=== PATIENT | male | born 1950 | race African-American/Black ===

== ENCOUNTER 2020-07-25 18:45 | Inpatient (IN) | payer MEDICARE, MEDICAID ==
[~2020-07-25] VITALS: Ht 188 cm; Wt 79.8 kg
[2020-07-25 19:57] LABS: HEMATOCRIT. 42.4 % (42.0-52.0); HEMOGLOBIN. 14.5 g/dL (14.0-18.0); MEAN CORPUSCULAR HEMOGLOBIN 30.1 pg (28.0-32.0); MEAN CORPUSCULAR VOLUME 88.1 fL (80.0-94.0); MEAN PLATELET VOLUME 9.3 fl (7.4-10.4); PLATELET 355 x1000/uL (130-400); RED BLOOD CELL COUNT 4.82 mill/uL (4.7-6.1); RED CELL DISTRIBUTION WIDTH 12.2 % (11.6-14.6)
[2020-07-25 20:04] LABS: CHLORIDE 101 mEq/L (98-107)
[2020-07-25] MEDS ORDERED: AZITHROMYCIN 500 MG in DEXT 5% WATER 250 ML IV SCH (20:30)
[2020-07-25] MEDS ORDERED: CEFTRIAXONE 1 G PREMIX 50 ML IV ONE (20:30)
[2020-07-25 20:56] LABS: PLATELET ESTIMATE NORMAL
[2020-07-25] MEDS ORDERED: SODIUM CHLORIDE 0.9% 1,000 ML IV ONE ×2 (21:45→23:15)
[2020-07-25] MEDS ORDERED: ONDANSETRON HCL 4MG/2ML INJ IV PRN (22:30)
[2020-07-25] MEDS ORDERED: DIPHENHYDRAMINE 50MG/ML VIAL IV PRN (22:30)
[2020-07-25] MEDS ORDERED: DOCUSATE SODIUM 100MG CAPSULE PO PRN (22:30)
[2020-07-25] MEDS ORDERED: GUAIFENESIN 200MG/10ML SUGAR FREE UDC PO PRN (22:30)
[2020-07-25] MEDS ORDERED: MORPHINE SULFATE 2 MG/ML CPJ (NOT FOR IM USE) IV PRN (22:30)
[2020-07-25] MEDS ORDERED: HYDROCODONE/ACETAMINOPHEN 5/325MG TABLET PO PRN (22:30)
[2020-07-25] MEDS ORDERED: MAGNESIUM/ALUMINUM HYDROXIDE/SIMETHICONE 30ML UDC PO PRN (22:30)
[2020-07-25] MEDS ORDERED: CLONIDINE 0.1MG TABLET PO PRN (22:30)
[2020-07-25] MEDS ORDERED: ALBUTEROL 6.7GM HFA INHALER ORI PRN (22:30)
[2020-07-25] MEDS ORDERED: ACETAMINOPHEN 325MG TABLET PO PRN (22:30)
[2020-07-25] MEDS ORDERED: LORAZEPAM 2MG/ML CPJ IV PRN (22:30)
[2020-07-26] VITALS (7 sets, daily range): BP systolic 92–121; BP diastolic 53–72
[2020-07-26] MEDS: SODIUM CHLORIDE 0.9% INJ 3ML FLUSH IVF SCH ×3 (05:17→20:45)
[2020-07-26 06:43] LABS: HEMATOCRIT. 39.5 % (42.0-52.0); HEMOGLOBIN. 13.4 g/dL (14.0-18.0); MEAN CORPUSCULAR HEMOGLOBIN 30.2 pg (28.0-32.0); MEAN CORPUSCULAR VOLUME 88.8 fL (80.0-94.0); MEAN PLATELET VOLUME 9.2 fl (7.4-10.4); PLATELET 326 x1000/uL (130-400); RED BLOOD CELL COUNT 4.45 mill/uL (4.7-6.1); RED CELL DISTRIBUTION WIDTH 12.3 % (11.6-14.6)
[2020-07-26] MEDS ORDERED: AZITHROMYCIN 500 MG in DEXT 5% WATER 250 ML IV SCH (08:00)
[2020-07-26 08:14] LABS: CHLORIDE 104 mEq/L (98-107)
[2020-07-26] MEDS ORDERED: ENOXAPARIN 40MG/0.4ML SYR SUBCUT SCH (09:00)
[2020-07-26] MEDS ORDERED: MAGNESIUM HYDROXIDE 400MG/5ML 30ML UDC PO PRN (12:00)
[2020-07-26] MEDS: DEXAMETHASONE 10 MG/ML VIAL IV SCH (13:07)
[2020-07-26] MEDS: ASPIRIN 81MG EC TABLET PO SCH (13:07)
[2020-07-26 13:48] LABS: PLATELET ESTIMATE NORMAL
[2020-07-26] MEDS ORDERED: CEFTRIAXONE 1 G PREMIX 50 ML IV SCH (20:00)
[2020-07-26] MEDS: CEFTRIAXONE 1,000 MG in DEXTROSE 5% WATER 50 ML IV SCH (20:44)
[2020-07-27] VITALS: BP 95/62
[2020-07-27 04:00] VITALS: BP 105/67
[2020-07-27] MEDS: SODIUM CHLORIDE 0.9% INJ 3ML FLUSH IVF SCH ×3 (05:12→22:57)
[2020-07-27 08:00] VITALS: BP 111/69
[2020-07-27] MEDS: DEXAMETHASONE 10 MG/ML VIAL IV SCH (08:08)
[2020-07-27] MEDS: ASPIRIN 81MG EC TABLET PO SCH (08:08)
[2020-07-27] MEDS: AZITHROMYCIN 500 MG in DEXT 5% WATER 250 ML IV SCH (08:12)
[2020-07-27 12:00] VITALS: BP 110/68
[2020-07-27] MEDS: ASCORBIC ACID 500 MG TABLET PO SCH ×2 (12:45→16:29)
[2020-07-27] MEDS: ZINC SULFATE 220 MG ( 50 ) CAPSULE PO SCH (12:45)
[2020-07-27] MEDS: ERGOCALCIFEROL 50000UNITS CAPSULE PO SCH (12:45)
[2020-07-27 16:00] VITALS: BP 107/74
[2020-07-27] MEDS: CEFTRIAXONE 1,000 MG in DEXTROSE 5% WATER 50 ML IV SCH (20:07)
[2020-07-27 20:32] VITALS: BP 120/76
[2020-07-28 00:17] VITALS: BP 113/73
[2020-07-28 04:00] VITALS: BP 118/78
[2020-07-28] MEDS: SODIUM CHLORIDE 0.9% INJ 3ML FLUSH IVF SCH ×3 (05:24→21:00)
[2020-07-28 07:06] LABS: HEMATOCRIT. 42.2 % (42.0-52.0); MEAN CORPUSCULAR HEMOGLOBIN 29.2 pg (28.0-32.0); MEAN CORPUSCULAR VOLUME 87.9 fL (80.0-94.0); MEAN PLATELET VOLUME 9.4 fl (7.4-10.4); PLATELET 467 x1000/uL (130-400); RED CELL DISTRIBUTION WIDTH 12.4 % (11.6-14.6)
[2020-07-28 07:12] LABS: CHLORIDE 102 mEq/L (98-107)
[2020-07-28] MEDS: DEXAMETHASONE 10 MG/ML VIAL IV SCH (08:52)
[2020-07-28] MEDS: AZITHROMYCIN 500 MG in DEXT 5% WATER 250 ML IV SCH (08:52)
[2020-07-28] MEDS: ASPIRIN 81MG EC TABLET PO SCH (08:53)
[2020-07-28] MEDS: ZINC SULFATE 220 MG ( 50 ) CAPSULE PO SCH (08:53)
[2020-07-28] MEDS: ASCORBIC ACID 500 MG TABLET PO SCH ×3 (08:53→16:19)
[2020-07-28] MEDS: ENOXAPARIN 40MG/0.4ML SYR SUBCUT SCH (12:00)
[2020-07-28 14:30] LABS: PLATELET ESTIMATE INCREASED
[2020-07-28 20:33] VITALS: BP 110/77
[2020-07-28] MEDS: CEFTRIAXONE 1,000 MG in DEXTROSE 5% WATER 50 ML IV SCH (21:00)
[2020-07-29 00:17] VITALS: BP 121/79
[2020-07-29 04:00] VITALS: BP 118/71
[2020-07-29] MEDS: SODIUM CHLORIDE 0.9% INJ 3ML FLUSH IVF SCH ×3 (05:32→21:24)
[2020-07-29 06:53] LABS: HEMATOCRIT. 40.3 % (42.0-52.0); HEMOGLOBIN. 13.9 g/dL (14.0-18.0); MEAN CORPUSCULAR HEMOGLOBIN 30.7 pg (28.0-32.0); MEAN PLATELET VOLUME 8.5 fl (7.4-10.4); PLATELET 418 x1000/uL (130-400); RED BLOOD CELL COUNT 4.53 mill/uL (4.7-6.1); RED CELL DISTRIBUTION WIDTH 12.4 % (11.6-14.6)
[2020-07-29 06:57] LABS: CHLORIDE 104 mEq/L (98-107)
[2020-07-29 08:00] VITALS: BP 126/72
[2020-07-29] MEDS: AZITHROMYCIN 500 MG in DEXT 5% WATER 250 ML IV SCH (08:09)
[2020-07-29] MEDS: ZINC SULFATE 220 MG ( 50 ) CAPSULE PO SCH (08:09)
[2020-07-29] MEDS: ASPIRIN 81MG EC TABLET PO SCH (08:09)
[2020-07-29] MEDS: ASCORBIC ACID 500 MG TABLET PO SCH ×3 (08:09→17:40)
[2020-07-29] MEDS: DEXAMETHASONE 10 MG/ML VIAL IV SCH (08:09)
[2020-07-29 12:00] VITALS: BP 125/77
[2020-07-29] MEDS: ENOXAPARIN 40MG/0.4ML SYR SUBCUT SCH ×2 (12:00→12:20)
[2020-07-29 13:32] LABS: PLATELET ESTIMATE SLIGHTLY INCREASED
[2020-07-29 16:00] VITALS: BP 135/86
[2020-07-29 20:00] VITALS: BP 145/94
[2020-07-29] MEDS: CEFTRIAXONE 1,000 MG in DEXTROSE 5% WATER 50 ML IV SCH (20:49)
[2020-07-30] VITALS: BP 112/69
[2020-07-30 04:00] VITALS: BP 110/72
[2020-07-30] MEDS: SODIUM CHLORIDE 0.9% INJ 3ML FLUSH IVF SCH ×3 (05:15→21:17)
[2020-07-30 06:29] LABS: HEMATOCRIT. 40.3 % (42.0-52.0); HEMOGLOBIN. 13.4 g/dL (14.0-18.0); MEAN CORPUSCULAR HEMOGLOBIN 29.9 pg (28.0-32.0); MEAN CORPUSCULAR VOLUME 89.9 fL (80.0-94.0); MEAN PLATELET VOLUME 8.8 fl (7.4-10.4); PLATELET 428 x1000/uL (130-400); RED BLOOD CELL COUNT 4.48 mill/uL (4.7-6.1); RED CELL DISTRIBUTION WIDTH 12.6 % (11.6-14.6)
[2020-07-30 06:35] LABS: CHLORIDE 108 mEq/L (98-107)
[2020-07-30 08:00] VITALS: BP 106/69
[2020-07-30] MEDS: AZITHROMYCIN 500 MG in DEXT 5% WATER 250 ML IV SCH (09:09)
[2020-07-30] MEDS: ZINC SULFATE 220 MG ( 50 ) CAPSULE PO SCH (09:09)
[2020-07-30] MEDS: DEXAMETHASONE 10 MG/ML VIAL IV SCH (09:10)
[2020-07-30] MEDS: ASCORBIC ACID 500 MG TABLET PO SCH ×3 (09:10→16:45)
[2020-07-30] MEDS: ASPIRIN 81MG EC TABLET PO SCH (09:10)
[2020-07-30 12:00] VITALS: BP 108/67
[2020-07-30] MEDS: ENOXAPARIN 40MG/0.4ML SYR SUBCUT SCH (12:00)
[2020-07-30 15:52] LABS: PLATELET ESTIMATE SLIGHTLY INCREASED
[2020-07-30 16:00] VITALS: BP 130/83
[2020-07-30] MEDS: CEFTRIAXONE 1,000 MG in DEXTROSE 5% WATER 50 ML IV SCH (19:44)
[2020-07-30 20:00] VITALS: BP 106/77
[2020-07-31] VITALS: BP 120/75
[2020-07-31 04:00] VITALS: BP 117/69
[2020-07-31] MEDS: SODIUM CHLORIDE 0.9% INJ 3ML FLUSH IVF SCH ×3 (05:25→21:17)
[2020-07-31 08:00] VITALS: BP 120/72
[2020-07-31] MEDS: ZINC SULFATE 220 MG ( 50 ) CAPSULE PO SCH (08:19)
[2020-07-31] MEDS: ASPIRIN 81MG EC TABLET PO SCH (08:19)
[2020-07-31] MEDS: DEXAMETHASONE 10 MG/ML VIAL IV SCH (08:19)
[2020-07-31] MEDS: ASCORBIC ACID 500 MG TABLET PO SCH ×3 (08:19→16:11)
[2020-07-31 10:18] LABS: BG CARBOXYHEMOGLOBIN 0.2 % (0.5-1.5); BG DEOXYHEMOGLOBIN 9.4 % (0.0-5.0); BG FRACTION INSPIRED OXYGEN 21; BG HCO3 ACT 22.4 mmol/L (22.0-26.0); BG METHEMOGLOBIN 0.2 % (0.0-1.5); BG OXYGEN SATURATION 90.6 % (92.0-98.5); BG OXYHEMOGLOBIN 90.2 % (94.0-97.0); BG PCO2 33.9 mmHg (35.0-45.0); BG PH 7.438 (7.350-7.450); BG PO2 55.1 mmHg (75.0-100.0); BG SAMPLE SITE RIGHT BRACHIAL; BG TOTAL HEMOGLOBIN 15.1 g/dL (12.0-18.0); BG VENT MODE ROOM AIR
[2020-07-31 12:00] VITALS: BP 124/87
[2020-07-31] MEDS: ENOXAPARIN 40MG/0.4ML SYR SUBCUT SCH (12:00)
[2020-07-31 16:00] VITALS: BP 114/74
[2020-07-31 20:00] VITALS: BP 127/85
[2020-07-31] MEDS: CEFTRIAXONE 1,000 MG in DEXTROSE 5% WATER 50 ML IV SCH (21:17)
[2020-08-01] VITALS: BP 107/67
[2020-08-01 04:00] VITALS: BP 118/73
[2020-08-01] MEDS: SODIUM CHLORIDE 0.9% INJ 3ML FLUSH IVF SCH ×3 (05:27→22:00)
[2020-08-01 08:00] VITALS: BP 134/77
[2020-08-01] MEDS: DEXAMETHASONE 10 MG/ML VIAL IV SCH (08:15)
[2020-08-01] MEDS: ASCORBIC ACID 500 MG TABLET PO SCH ×3 (08:15→16:44)
[2020-08-01] MEDS: ZINC SULFATE 220 MG ( 50 ) CAPSULE PO SCH (08:15)
[2020-08-01] MEDS: ASPIRIN 81MG EC TABLET PO SCH (08:15)
[2020-08-01 12:00] VITALS: BP 136/89
[2020-08-01] MEDS: ENOXAPARIN 40MG/0.4ML SYR SUBCUT SCH (12:00)
[2020-08-01 16:00] VITALS: BP 116/78
[2020-08-01 20:37] VITALS: BP 116/78
[2020-08-02 00:13] VITALS: BP 104/66
[2020-08-02 04:00] VITALS: BP 110/73
[2020-08-02] MEDS: SODIUM CHLORIDE 0.9% INJ 3ML FLUSH IVF SCH ×3 (06:00→22:00)
[2020-08-02 08:00] VITALS: BP 125/87
[2020-08-02] MEDS: ASPIRIN 81MG EC TABLET PO SCH (08:39)
[2020-08-02] MEDS: ASCORBIC ACID 500 MG TABLET PO SCH ×3 (08:39→17:02)
[2020-08-02] MEDS: DEXAMETHASONE 10 MG/ML VIAL IV SCH (08:39)
[2020-08-02] MEDS: ZINC SULFATE 220 MG ( 50 ) CAPSULE PO SCH (08:39)
[2020-08-02] MEDS: ENOXAPARIN 40MG/0.4ML SYR SUBCUT SCH (11:07)
[2020-08-02 12:00] VITALS: BP 137/83
[2020-08-02 16:00] VITALS: BP 122/88
[2020-08-02 20:00] VITALS: BP 122/83
[2020-08-03] VITALS: BP 136/88
[2020-08-03 04:00] VITALS: BP 129/83
[2020-08-03] MEDS: SODIUM CHLORIDE 0.9% INJ 3ML FLUSH IVF SCH ×3 (05:04→21:47)
[2020-08-03 08:00] VITALS: BP 138/84
[2020-08-03] MEDS: ASPIRIN 81MG EC TABLET PO SCH (08:07)
[2020-08-03] MEDS: ERGOCALCIFEROL 50000UNITS CAPSULE PO SCH (08:07)
[2020-08-03] MEDS: ASCORBIC ACID 500 MG TABLET PO SCH ×3 (08:07→17:10)
[2020-08-03] MEDS: DEXAMETHASONE 10 MG/ML VIAL IV SCH (08:07)
[2020-08-03] MEDS: ZINC SULFATE 220 MG ( 50 ) CAPSULE PO SCH (08:07)
[2020-08-03 12:16] VITALS: BP 125/87
[2020-08-03 16:00] VITALS: BP 126/72
[2020-08-03 20:00] VITALS: BP 126/89
[2020-08-04 00:05] VITALS: BP 116/74
[2020-08-04 04:00] VITALS: BP 119/88
[2020-08-04] MEDS: SODIUM CHLORIDE 0.9% INJ 3ML FLUSH IVF SCH (05:39)
[2020-08-04 08:00] VITALS: BP 121/81
[2020-08-04] MEDS: ASPIRIN 81MG EC TABLET PO SCH (08:02)
[2020-08-04] MEDS: DEXAMETHASONE 10 MG/ML VIAL IV SCH (08:02)
[2020-08-04] MEDS: ZINC SULFATE 220 MG ( 50 ) CAPSULE PO SCH (08:02)
[2020-08-04] MEDS: ASCORBIC ACID 500 MG TABLET PO SCH ×2 (08:02→12:14)
[2020-08-04 12:00] VITALS: BP 112/69
[2020-08-04] MEDS ORDERED: IPRATROPIUM/ALBUTEROL 0.5-3(2.5)MG/3ML NEB HHN PRN (12:00)
[2020-08-04 13:27] VITALS: BP 112/69
== END 2020-08-04 14:55 | DRG 871 ==
LOC: ER 18:45 → 7WST 21:34 → ENRESERV 22:07 → 8WST 08-04 09:06
PROVIDERS: ADMIT Internal Medicine; ATTEND Internal Medicine
DX: A41.89 Other specified sepsis (principal); U07.1 COVID-19; J96.01 Acute respiratory failure with hypoxia; J12.82 Pneumonia due to coronavirus disease 2019; E46 Unspecified protein-calorie malnutrition; I10 Essential (primary) hypertension; F12.90 Cannabis use, unspecified, uncomplicated; Z68.22 Body mass index [BMI] 22.0-22.9, adult; Z87.891 Personal history of nicotine dependence
CPT/HCPCS: 36415; 36600; 71045; 80048; 80053; 82375; 82728; 82805; 83605; 83615; 83880; 84145; 84484; 85025; 85379; 86140; 87426; 93005; 93970; 96365; 99291; C1893; J0456; J0696; J1100; J1650; J7030; J7040; J7060; U0003; U0005